=== PATIENT | male | born 1980 | race Caucasian/White ===

== ENCOUNTER 2017-02-10 21:38 | Emergency (ER) | payer OTHER ==
[2017-02-10 21:47] VITALS: BP 145/95
== END 2017-02-10 23:56 | disposition home or self-care (01) ==
LOC: ED 21:38
DX: T16.1XXA Foreign body in right ear, initial encounter (principal); R03.0 Elevated blood-pressure reading, without diagnosis of hypertension; X58.XXXA Exposure to other specified factors, initial encounter; Y93.89 Activity, other specified; Y92.89 Other specified places as the place of occurrence of the external cause; Y99.8 Other external cause status
CPT/HCPCS: J2001